=== PATIENT | female | born 1970 | race Caucasian/White ===

== ENCOUNTER → 2019-07-08 | Outpatient (CLI) | payer BC ==
--- NOTE | 2019-07-08 21:09 | PCVCIMAG ---
APPROVED REPORT Study performed: 07/08/2019 08:20:01 EXAM: Comprehensive 2D, Doppler, and color-flow Echocardiogram Patient Location: Echo lab Room #: 3Status: routine BSA: 1.79 HR: 70 bpmBP: 122/84 mmHg Rhythm: NSR Other Information Study Quality: Good Risk Factors: Cardiac Risk Factors: HTN Indications Mitral Valve Prolapse Chest Pain Migraines 2D Dimensions IVSd: 9.09 (7-11mm)LVOT Diam: 19.00 (18-24mm) LVDd: 40.44 mm PWd: 9.41 (7-11mm)Ascending Ao: 33.40 (22-36mm) LVDs: 26.95 (25-40mm) Left Atrium: 27.93 (27-40mm) Aortic Root: 31.37 mm LV Single Plane 4CH: 54.22 % LV Single Plane 2CH: 59.03 % Biplane EF: 57.3 % Volumes Left Atrial Volume (Systole) Single Plane 4CH: 63.14 mLSingle Plane 2CH: 53.65 mL LA ESV Index: 32.00 mL/m2 Aortic Valve AoV Peak Michael.: 1.16 m/s AO Peak Gr.: 5.41 mmHgLVOT Max P.19 mmHg LVOT Max V: 1.02 m/s JAVY Vmax: 2.46 cm2 Mitral Valve E/A Ratio: 0.8 MV Decel. Time: 253.34 ms MV E Max Michael.: 0.54 m/s MV A Michael.: 0.69 m/s IVRT: 79.58 ms TDI E/Lateral E': 9.00E/Medial E': 9.00 Medial E' Michael.: 0.06 m/s Lateral E' Michael.: 0.06 m/s Pulmonary Valve PV Peak Michael.: 0.68 m/sPV Peak Gr.: 1.87 mmHg DC End Vmax: 0.63 m/s Pulmonary Vein P Vein S: 0.41 m/sP Vein A: 0.24 m/s P Vein D: 0.32 m/sP Vein A Dur.: 93.4 msec P Vein S/D Ratio: 1.28 Tricuspid Valve TR Peak Michael.: 1.52 m/sRAP Estimate: 7.00 mmHg TR Peak Gr.: 9.19 mmHg PA Pressure: 16.00 mmHg Left Ventricle The left ventricle is normal size. There is normal LV segmental wall motion. There is normal left ventricular wall thickness. Left ventricular systolic function is normal. The left ventricular ejection fraction is within the normal range. LVEF is 50-55%. Mild diastolic dysfunction is present (impaired relaxation pattern). Right Ventricle The right ventricle is normal size. The right ventricular systolic function is normal. Atria The left atrium size is normal. The right atrium size is normal. Aortic Valve The aortic valve is normal in structure. No aortic regurgitation is present. There is no aortic valvular stenosis. Mitral Valve The mitral valve is normal in structure. Mild mitral regurgitation. No evidence of mitral valve stenosis. There is mild mitral valve prolapse. Tricuspid Valve The tricuspid valve is normal in structure. Trace tricuspid regurgitation. Pulmonary artery pressure is 16 mmHg. Pulmonic Valve The pulmonary valve is normal in structure. Trace pulmonic regurgitation. Great Vessels The aortic root is normal in size. The ascending aorta is normal in size. IVC is normal in size and collapses >50% with inspiration. Pericardium There is no pericardial effusion. <Conclusion> The left ventricle is normal size. LVEF is 50-55%. The aortic valve is normal in structure. The mitral valve is normal in structure. Mild mitral regurgitation. There is mild mitral valve prolapse. The tricuspid valve is normal in structure. Trace tricuspid regurgitation. Pulmonary artery pressure is 16 mmHg. The pulmonary valve is normal in structure. There is no pericardial effusion.
--- NOTE | 2019-07-09 15:46 | PCVCIMAG ---
APPROVED REPORT Imaging Protocol: Rest Tc-99m/Stress Tc-99m 1 day Study performed: 07/08/2019 08:50:33 Indication: Chest pain Patient Location: Out-Patient Stress Nurse: Halley De Jesus RN [place] Tech:Elisabeth CastroTITO whatleyMT Ht: 5 ft 6 in Wt: 155 lbs BSA: 1.79 m2 HR: 73 bpm BP: 141/92 mmHg BMI: 25.01 Medical History Medical History: HTN Medications: Verapamil Allergies: Sumatriplan, Topiramate Cardiac Risk Factors: Age Pretest Chest Pain Characteristics: No chest pain Resting Data Rest SPECT myocardial perfusion imaging was performed in supine position 45 minutes following the intravenous injection of 10.1 mCi of Tc-99m Sestamibi. Time of rest injection: 0900 Date: 07/08/2019 Administration Route: IV Administration Site: Left AC Exercise Stress At peak stress, the patient was injected intravenously with 34.5mCi of Tc-99m Tetrofosmin. Time of stress injection: 1030 Date: 07/08/2019 Administration Route: IV Administration Site: Left AC Patient continued to exercise for 1 minute(s). Gated Stress SPECT was performed 30 minutes after stress injection. The images were gated to evaluate regional wall motion and calculate left ventricular ejection fraction. Stress Test Details Stress Test: Exercise stress testing was performed using a Ferny protocol. HRMax Heart Rate (APMHR): 170 bpm Resting HR: 73 bpmTarget HR (85% APMHR): 144 bpm Max HR Achieved: 155 bpm % of APMHR: 91 Recovery HR: 83 bpm BP Resting BP: 141/92 mmHg Max BP: 144/84 mmHg Recovery BP: 144/78 mmHg ECG Resting ECG: Sinus Rhythm Stress ECG: Sinus Tachycardia Recovery ECG: Sinus Rhythm Clinical Reason for Termination: Maximal effort Stress Symptoms: Dyspnea, Fatigue Exercise duration: 11 min 15 sec Exercise capacity: 13.4 METs Symptoms resolved during recovery. Stress ECG Conclusion 1. subjectively negative for ischemia 2. electrocardiographically negative for ischemia 3. excellent functional capacity Study Data Post stress, the left ventricular ejection was 74%.. SSS: 0 SRS: 1 SDS: 0 TID = 0.85. Perfusion There is a small area of mildly reduced uptake in the apical segment of the anterior wall which is seen on the stress images as well as the resting images. This area thickens and moves normally and is most consistent with attenuation artifact. Wall Motion Normal left ventricular wall motion. Nuclear Conclusion ECG Findings: non-diagnostic Clinical Findings: negative for ischemia Nuclear Findings: negative for ischemia Exercise Capacity: normal Left Ventricular Function: normal 1. low risk study 2. post stress lvef 74% with normal wall motion <Conclusion> 1. subjectively negative for ischemia 2. electrocardiographically negative for ischemia 3. excellent functional capacity
== END | disposition home or self-care (01) ==
LOC: PCVCIMAG 08:18
PROVIDERS: ATTEND Internal Medicine
DX: I34.0 Nonrheumatic mitral (valve) insufficiency (principal); G43.019 Migraine without aura, intractable, without status migrainosus
CPT/HCPCS: 78452; 93017; 93306; A9500